=== PATIENT | male | born 1950 | race Caucasian/White ===

== ENCOUNTER 2016-08-07 15:21 | Inpatient (IN) | payer MEDICARE, MEDICAID ==
[2016-08-07 16:14] LABS: % BASOPHILS 0.4 % (0.0-2.0); % EOSINOPHILS 0.4 % (0.0-5.0); % LYMPHOCYTES 10.4 % (20.0-50.0); % MONOCYTES 4.9 % (2.0-10.0); % NEUTROPHILS 83.9 % (40.0-80.0); MEAN CELL VOLUME 83.9 fl (80-99); MEAN CORPUSCULAR HEMOGLOBIN 28.8 pg (27.0-31.0); MEAN CORPUSCULAR HGB CONC 34.3 pg (28.0-36.0); NEUTROPHILE ABSOLUTE 8.8 Th/cmm (1.8-8.0); PLATELET COUNT 262 Th/cmm (150-400); RED BLOOD COUNT 3.23 Mil/cmm (3.80-5.80); RED CELL DISTRIBUTION WIDTH 14.9 % (11.5-20.0); WHITE BLOOD COUNT 10.4 Th/cmm (4.8-10.8)
[2016-08-07 16:21] LABS: HEMATOCRIT 27.1 % (39.0-49.0); HEMOGLOBIN 9.3 gm/dL (12.6-17.4)
[2016-08-07 16:36] LABS: INR 1.12 (0.5-1.4); PROTHROMBIN TIME (TEST) 11.7 SECONDS (9.5-11.5)
--- NOTE | 2016-08-07 16:37 | ED Physician Chart ---
Chief Complaint/HPI - Patient Information Date Seen:: 08/07/16 Time Seen:: 16:15 Chief Complaint:: CONFUSED History of Present Illness:: THIS IS A 65 YO MALE WHO IS HALLUCINATING AND SCRATCHING HIS LEG SO MUCH THAT THEY WERE BLEEDING THIS AM. HE IS CONFUSED AND HAS A HISTORY OF PSYCHOSIS. HE IS TALKING NON STOP. HE WAS FOUND STANDING IN A POOL OF BLOOD WHEN EMS PICKED HIM UP. Allergies:: Allergies Allergy/AdvReac Type Severity Reaction Status Date / Time No Known Allergies Allergy Verified 08/07/16 16:07 Vitals:: Vital Signs - 8 hr 08/07/16 16:07 Temp 99.1 F HR 73 RR 16 BP 135/78 O2 Sat % 97 Historian:: Patient, Medical Records Review:: Nurse's Note Reviewed Review of Systems - Review of Systems General/Constitutional: No fever, No chills, No weight loss, No weakness, No diaphoresis, No edema, No loss of appetite, Other (THIS PATIENT IS UNABLE TO GIVE A REVIEW OF SYSTEMS ) Skin: No skin lesions, No rash, No bruising Head: No headache, No light-headedness Eyes: No loss of vision, No pain, No diplopia ENT: No earache, No nasal drainage, No sore throat, No tinnitus Neck: No neck pain, No swelling, No thyromegaly, No stiffness, No mass noted Cardio Vascular: No chest pain, No palpitations, No PND, No orthopnea, No edema Pulmonary: No SOB, No cough, No sputum, No wheezing GI: No nausea, No vomiting, No diarrhea, No pain, No melena, No hematochezia, No constipation, No hematemesis G/U: No dysuria, No frequency, No hematuria Musculoskeletal: No bone or joint pain, No back pain, No muscle pain Endocrine: No polyuria, No polydipsia Psychiatric: No prior psych history, No depression, No anxiety, No suicidal ideation Hematopoietic: No bruising, No lymphadenopathy Allergic/Immuno: No urticaria, No angioedema Neurological: No syncope, No focal symptoms, No weakness, No paresthesia, No headache, No seizure, No dizziness, No confusion, No vertigo Past Medical History - Past Medical History Obtainable: Yes Past Medical History: Other (ANEMIA) Family Medical History - Family Member Mother History Unknown: Yes Ethnicity: Non- Living Status: Hx Family Cancer: No Hx Family Coronary Artery Disease: No Hx Family Congestive Heart Failure: No Hx Family Hypertension: Yes Hx Family Stroke: No Hx Family Diabetes: No Hx Family Seizures: No Hx Family Dementia: No Hx Family AIDS: No Hx Family HIV: No Hx Family COPD: No Hx Family Hepatitis: No Hx Family Psychiatric Problems: No Hx Family Tuberculosis: No Physical Exam - Physical Examination General/Constitutional: Awake, Well-developed, well-nourished, Alert, No distress, GCS 15, Non-toxic appearing, Ambulatory Head: Atraumatic Eyes: Lids, conjuctiva normal, PERRL, EOMI Skin: Nl inspection, No rash, No skin lesions, No ecchymosis, Well hydrated, No lymphadenopathy ENMT: External ears, nose nl, Nasal exam nl, Lips, teeth, gums nl Neck: Nontender, Full ROM w/o pain, No JVD, No nuchal rigidity, No bruit, No mass, No stridor Respiratory: Nl effort/Exclusion, Clear to Auscultation, No Wheeze/Rhonchi/Rales Cardio Vascular: RRR, No murmur, gallop, rubs, NL S1 S2 GI: No tenderness/rebounding/guarding, No organomegaly, No hernia, Normal BS's, Nondistended, No mass/bruits, No McBurney tenderness : No CVA tenderness Extremities: Full ROM, normal strength in all extremities, No edema, Normal digits & nails Other Extremities comments:: THERE ARE LARGE ABRASION TO THE LOWER LEG FROM THE PATIENT SCRATCHING THEM. Neuro/Psych: Alert/oriented, DTR's symmetric, Normal sensory exam, Normal motor strength, Normal gait, No focal deficits Other Neuro/Psych comments:: THIS PATIENT HAS POOR THOUGHT PROCESS AND IS UP AND DOWN ON HIS MOOD. Misc: normal gait, Normal back, No paraspinal tenderness Labs/Radiology/EKG Results - Lab Results Results: Laboratory Tests 08/07/16 15:48 WBC 10.4 RBC 3.23 L Hgb 9.3 L D Hct 27.1 L D MCV 83.9 MCH 28.8 MCHC Differential 34.3 RDW 14.9 Plt Count 262 MPV 8.0 Neutrophils % 83.9 H Lymphocytes % 10.4 L Monocytes % 4.9 Eosinophils % 0.4 Basophils % 0.4 - Radiology Results Results: CHEST X-RAY = NAD - EKG Interpretations EKG Time:: 15:38 Rate & Rhythm: 67 Gordon: RIGHT Intervals: NO ECTOPY ED Septic Shock - . Is Septic Shock (SBP<90, OR Lactate>4 mmol\L) present?: No - <6hrs of presentation: Vital Signs: Vital Signs - 8 hr 08/07/16 16:07 Temp 99.1 F HR 73 RR 16 BP 135/78 O2 Sat % 97 Reassessment (Disposition) - Diagnosis Diagnosis:: PSYCHOSIS ANEMIA - Patient Disposition Discharge/Transfer:: Acute Care w/in this hosp Admitting Medical Physician:: Nathan Hinkle Admitting Psych Physician:: Luis James Condition at Disposition:: Unchanged ED Discharge Plan - Patient Disposition Admit/Discharge/Transfer: Acute Care w/in this hosp Condition at Disposition: Unchanged
[2016-08-07 16:44] LABS: ALB/GLOB RATIO 1.3 (1.0-1.8); ALKALINE PHOSPHATASE 45 U/L (34-104); ANION GAP 8.7 (7.0-16.0); BILIRUBIN,TOTAL 0.3 mg/dL (0.3-1.0); BUN - UREA NITROGEN 16 mg/dL (7-25); BUN/CREATININE RATIO 17.8; CALCIUM SERUM 8.8 mg/dL (8.6-10.3); CARBON DIOXIDE 24.3 mEq/L (21.0-31.0); CHLORIDE 100 mEq/L (98-107); CREATININE - SERUM 0.9 mg/dL (0.7-1.3); GLUCOSE 107 mg/dL (70-105); SGOT 15 U/L (13-39); SGPT/ALT 7 U/L (7-52); SODIUM SERUM 129 mEq/L (136-145)
[2016-08-07 16:45] LABS: CHOLESTEROL 100 mg/dL (<200); TRIGLYCERIDES 44 mg/dL (<150)
[2016-08-07 17:14] LABS: URINE BILIRUBIN NEGATIVE (NEGATIVE); URINE COLOR YELLOW; URINE GLUCOSE (UA) NEGATIVE (NEGATIVE)
[2016-08-07 17:15] LABS: URINE BACTERIA OCCASIONAL /hpf (NONE SEEN); URINE BLOOD NEGATIVE (NEGATIVE); URINE EPITHELIAL CELLS RARE /lpf (FEW); URINE HYALINE CAST 0-2 /lpf (0-2); URINE KETONE NEGATIVE (NEGATIVE); URINE PROTEIN NEGATIVE (NEGATIVE); URINE RBC NONE SEEN /hpf (0-5); URINE UROBILINOGEN 0.2 E.U./dL (0.2 - 1.0)
[2016-08-07] MEDS ORDERED: Maalox 30 mL Cup PO PRN (19:41)
[2016-08-07] MEDS ORDERED: Magnesium Hydroxide (MOM) 30 mL UDC PO PRN (19:41)
[2016-08-07 19:54] VITALS: BP 99/48
--- NOTE | 2016-08-07 20:42 | Admit Criteria Form ---
Admit Criteria Forms - Admit Criteria Diagnosis: PSYCHIATRIC DISORDERS Clinical Indications for Inpatient Care (Place 'X' for any and all applicable criteria): Ongoing inpatient care may be needed for ANY ONE of the following(1)(2)(3)(4)(6) (7)(8): [ ]I. Danger to self or others not manageable at lower level of care. [ ]II. Grave disability (eg, inability to perform self care necessary at lower level of care) [ ]III. Agitation or inappropriate behavior interfering with care for primary condition (eg, attempting to discontinue lines or drains prematurely, unable to cooperate with respiratory care) [X]IV. Severe disability or disorder indicated by ALL of the following: [X]a) Severe behavioral health disorder-related symptoms or condition indicated by ANY ONE of the following: [ ]i) Severe problem with cognition, memory, judgment, or impulse control [X]ii) Severe clinical manifestations (eg, hallucinations, delusions, other acute psychotic symptoms, gonzalo, extreme agitation or anxiety) [X]b) Patient management at lower level of care is not feasible until acute intervention or modification is initiated. Extended stay beyond goal length of stay for the primary condition may be indicated when ANY ONE of the following is present: (1)(2)(3)(4): [ ]a) Patient is a danger to self or others and not manageable at lower level of care. [ ]b) Behavior crisis management, including physical or chemical restraints, is required and is not available at a lower level of care. [ ]c) Behavioral symptoms (e.g., agitation, somnolence, inappropriate behavior) are present, and are not manageable at a lower level of care. [ ]d) Patient cannot understand follow-up treatment and crisis plan. [ ]e) Provider and supports are not sufficiently available at lower level of care. [ ]f) Patient cannot participate (e.g., verify absence of plan for harm) and is in needed of monitoring. The original [facility] content created by [facility] has been revised. The portions of the content which have been revised are identified through the use of italic text or in bold, and [facility] has neither reviewed nor approved the modified material. All other unmodified content is copyright [facility]. Please see references footnoted in the original [facility] edition 2016 Admit Criteria Met?: Yes
[2016-08-08] MEDS: Atorvastatin Calcium 10 MG TAB PO SCH (09:14)
[2016-08-08] MEDS: Aspirin 81mg Chewable Tab PO SCH (09:15)
[2016-08-08] MEDS: Multivitamin Tab PO SCH (09:15)
--- NOTE | 2016-08-08 09:36 | Diagnostic Imaging Report ---
CHEST X-RAY: AP view INDICATION: Shortness of breath COMPARISON: Chest x-ray 06/30/2015 FINDINGS: Chronic lung changes are seen with no focal consolidation or pleural effusions. Postsurgical changes of the right hilar region are noted. Heart size is normal. Tortuous aorta is noted. Degenerative changes of the spine are noted. IMPRESSION: Chronic lung changes with no focal consolidation identified. Postsurgical changes of the right hilar region, correlate clinically. Tortuous aorta.
[2016-08-09] MEDS: Atorvastatin Calcium 10 MG TAB PO SCH (09:33)
[2016-08-09] MEDS: Aspirin 81mg Chewable Tab PO SCH (09:33)
[2016-08-09] MEDS: Multivitamin Tab PO SCH (09:34)
--- NOTE | 2016-08-09 19:20 | Psychosocial Evaluation ---
DATE OF SERVICE: 08/08/2016 IDENTIFYING DATA: The patient is a 65-year-old male, resident of [facility]. Information obtained by directly interviewing the patient and reviewing the record since talking to the staff members. JUSTIFICATION OF HOSPITALIZATION: The patient is admitted here on a voluntary basis in view of his acute agitation. CHIEF COMPLAINT: "I do not know." HISTORY OF PRESENT ILLNESS: This is one of multiple psychiatric hospitalizations for this patient who was last hospitalized in June 2015. The patient is reporting that he has been getting upset at the facility. The patient is reported to have been on Seroquel, Ativan, and Celexa and even then, these medications are not helping him. The patient on the day of the hospitalization has been getting out of control, the patient is reported to be screaming and yelling and hence it is decided to send the patient's care at the lower level has not been successful and hence the patient has been referred over to the geropsychiatric unit for further care. The patient has been reported to have been self-abusive, is scratching the legs and bleeding nonstop for the past 6 hours prior to the hospitalization. The patient is very unstable, thinks that something is on him and then he is not able to stop acting out. At the time of the hospitalization, the patient has been on Seroquel, which he has been taking 50 mg at bedtime. The patient is also on the citalopram, we has been ____ 40 mg. The patient has been getting the medication for his blood pressure and the hypercholesterolemia and the patient is also on hydrochlorothiazide. The patient is being followed up by Dr. Parson on an outpatient basis. PAST PSYCHIATRIC HISTORY: Please refer to the above. MEDICAL HISTORY: Physical examination is requested to be done by Dr. Hinkle. The patient is reported to have been treated for hypertension, mycosis. ALLERGIES: No allergies to any medications are reported at the time of the evaluation. PHYSICAL OR SEXUAL ABUSE HISTORY: None. LEGAL PROBLEMS: None. SUBSTANCE ABUSE HISTORY: None. SOCIAL HISTORY: The patient is a resident of the [facility]. MENTAL EXAMINATION: The patient is a 65-year-old, looking his stated age, superficially____ cooperative. Eye contact is poor. Mood is noted to be irritable. Affect is constricted. Insight and judgment at this time are noted to be very much impaired. Impulse control is noted to be poor. The patient is getting easily agitated. The patient's coping skills are noted to be very poor. The patient has been noted to be very paranoid and has been having acute mood swings. The patient is going to be restarted on the medications and is going to be closely monitored. DIAGNOSTIC IMPRESSION: AXIS I: Schizoaffective disorder. AXIS II: None. AXIS III: As per Dr. Hinkle. IMMEDIATE TREATMENT PLAN: The patient is going to be observed on inpatient unit, provided with supportive psychotherapy. The patient is going to be closely monitored. Once stabilized, the patient is going to be discharged [facility] to be followed up on an outpatient basis. JOB# [id number]
--- NOTE | 2016-08-10 05:57 | Progress Notes ---
DATE: 08/09/2016 TIME PATIENT SEEN: 1:15 p.m. SUBJECTIVE: Staff was spoken to. The patient is interviewed. Mood is noted to be irritable. Affect is constricted. Insight and judgment are noted to be very much impaired. The patient is still getting easily irritable, angry and screaming and yelling at the staff. No side effects to the medications are noted. Sleep is noted to be poor. Appetite is noted to be fair. ASSESSMENT: The patient is very agitated and impulsive. PLAN: To continue the patient with the supportive therapy and follow up. JOB# [id number]
[2016-08-10] MEDS: Multivitamin Tab PO SCH (10:06)
[2016-08-10] MEDS: Aspirin 81mg Chewable Tab PO SCH (10:06)
[2016-08-10] MEDS: Atorvastatin Calcium 10 MG TAB PO SCH (10:07)
--- NOTE | 2016-08-10 16:46 | History & Physical ---
ADMIT DATE: 08/10/2016 CHIEF COMPLAINT: Abnormal behavior. HISTORY OF PRESENT ILLNESS: This is a male , 65 years of age, comes from the [facility] where he has self-mutilated himself saying that he has bugs in his skin, cut himself on the upper lower extremity and torso and caused a lot of bleeding, was immediately brought to the Emergency Room in the [facility], has been evaluated and admitted in the [facility] with Dr. James as his psychiatrist. PAST MEDICAL HISTORY: The patient has had the following conditions in the past. 1. He has hypertension, stable. 2. Generalized degenerative joint disease with osteoarthritis and osteoporosis, also stable. 3. Chronic pain syndrome. FAMILY HISTORY: He is devoid of inherited diseases. He has had usual childhood diseases and has had his immunizations at the time they were needed. ALLERGIES: No known allergies. SOCIAL HISTORY: History of smoking. I am not sure if he drinks alcohol. He is at liberty to live in and out of the facility. MEDICATIONS: I do not have any current medication list at the present time. REVIEW OF SYSTEMS: Confusion, disorientation, anger. No cough, no congestion, no chest pain, no abdominal discomfort. No bowel or urinary problems. PHYSICAL EXAMINATION: GENERAL: The patient appears alert, ambulant, but does not appear to be in touch with reality. VITAL SIGNS: Blood pressure is 130/70, pulse 70, respirations 18, temperature is 98, blood pressure is 150/90. HEAD: Skull symmetrical. No alopecia, no masses, no abnormal pulsations of bruits. SKIN: Dry with no dermatosis. No particular ecchymosis. No jaundice discoloration. HEENT: The eyes are sluggish, but equal and reactive to light reflexes, nonicteric sclerae. No corneal opacities. No conjunctival injection, atherosclerotic change of the fundi. Patent ear canals and drums are intact. No septal deviation. No turbinate engorgement. No circumoral cyanosis and no oropharyngeal infection. NECK: Supple. Thyroid is not enlarged. Trachea is midline. Bilateral palpable carotids, no bruits. No supraclavicular venous engorgement or lymphadenopathy. CHEST: Symmetrical. No gynecomastia. LUNGS: Clear with no rales or rhonchi. CARDIOVASCULAR: Heart rate and rhythm with no arrhythmias. ABDOMEN: Benign, physiologic. No organomegaly. No rebound, guarding or tenderness. No ascites or shifting dullness, peristalsis audible on auscultation. The patient is somewhat combative. Refuses external genitalia, prostate or rectal exam. EXTREMITIES: Shows weak, but palpable pulses. No pedal edema. Negative Homans sign. Numerous excoriations of the upper and lower extremities and abdomen with lacerations to the skin which has caused a lot of bleeding. The patient has been admitted in [facility] with Dr. Barroso in consult. JOB# [id number]
--- NOTE | 2016-08-11 04:01 | Progress Notes ---
DATE: 08/10/2016 PSYCHIATRIC PROGRESS NOTE TIME PATIENT SEEN: 10:30 a.m. SUBJECTIVE: Staff was spoken to. The patient is interviewed. Mood is irritable. Affect is constricted. Insight and judgment at this time are noted to be still impaired. Impulse control is noted to be poor. The patient is screaming and yelling and the patient has been able to hit the staff members and patient has to be given a dose of the Ativan to calm him down. No side effects to the medications are noted. The patient has no insight into his illness. ASSESSMENT: The patient is still impulsive. PLAN: To continue the patient with Seroquel and follow the patient up. JOB# [id number]
[2016-08-11] MEDS: Atorvastatin Calcium 10 MG TAB PO SCH (08:54)
[2016-08-11] MEDS: Multivitamin Tab PO SCH (08:54)
[2016-08-11] MEDS: Aspirin 81mg Chewable Tab PO SCH (08:56)
--- NOTE | 2016-08-12 02:39 | Progress Notes ---
DATE: 08/11/2016 TIME PATIENT SEEN: 10:30 a.m. SUBJECTIVE: Staff was spoken to. The patient is interviewed. Mood is noted to be irritable. Affect is constricted. The patient is still depressed. Coping skills are noted to be poor. The patient is screaming and yelling. The patient has no insight into his illness. The patient needs to be redirected. ASSESSMENT: ____He is still depressed and psychotic. PLAN: To continue the patient with the Celexa and Seroquel and follow up. JOB# [id number]
[2016-08-12] MEDS: Atorvastatin Calcium 10 MG TAB PO SCH (09:46)
[2016-08-12] MEDS: Multivitamin Tab PO SCH (09:47)
[2016-08-12] MEDS: Aspirin 81mg Chewable Tab PO SCH (09:47)
--- NOTE | 2016-08-12 23:48 | Progress Notes ---
DATE: 08/12/2016 PSYCHIATRIC PROGRESS NOTE TIME PATIENT SEEN: 10:30 a.m. SUBJECTIVE: Staff was spoken to. The patient is interviewed. Mood is noted to be irritable. Affect is constricted. Insight and judgment at this time are noted to be very much impaired. Impulse control seems to be limited. The patient has a tendency to scream and yell. The patient is currently on citalopram 40 mg along with the Seroquel 50 mg at bedtime and has been able to tolerate the medication. No major side effects to the medications are noted. PLAN: To continue the patient with the current medications. I encouraged the patient to verbalize the concerns rather than to act out. JOB# [id number]
[2016-08-13] MEDS: Aspirin 81mg Chewable Tab PO SCH (08:32)
[2016-08-13] MEDS: Multivitamin Tab PO SCH (08:32)
[2016-08-13] MEDS: Atorvastatin Calcium 10 MG TAB PO SCH (08:33)
--- NOTE | 2016-08-14 02:19 | Progress Notes ---
DATE: 08/13/2016 TIME PATIENT SEEN: 08:30 a.m. SUBJECTIVE: Staff was spoken to. The patient is interviewed. Mood is noted to be irritable. Affect is constricted. Insight and judgment are noted to be still impaired. Coping skills are noted to be poor. The patient is isolative and withdrawn. The patient is currently on Celexa and Seroquel and is able to tolerate the medication. No side effects to the medications are noted. The patient has been still testing the limits, but could be redirectable at this time. ASSESSMENT: The patient is still impulsive and behavior is a danger to others at this time rather than to himself. PLAN: To continue the patient with the current medications and followup. JOB# [id number]
[2016-08-14] MEDS: Atorvastatin Calcium 10 MG TAB PO SCH (08:32)
[2016-08-14] MEDS: Aspirin 81mg Chewable Tab PO SCH (08:33)
[2016-08-14] MEDS: Multivitamin Tab PO SCH (08:35)
--- NOTE | 2016-08-15 06:49 | Progress Notes ---
DATE: 08/14/2016 PSYCHIATRIC PROGRESS NOTE TIME PATIENT SEEN: 10:30 a.m. SUBJECTIVE: Staff was spoken to. The patient is interviewed. Mood is noted to be irritable. Affect is constricted. The patient's coping skills are noted to be very poor. The patient is isolative and withdrawn. The patient is currently on Celexa and has been able to tolerate the medication. The patient is also on Seroquel for his impulsivity. The patient's family does not want him back at [facility], they want him back at [facility] and the patient at this time is not ready to be discharged. PLAN: To continue the patient with the supportive therapy. I encouraged the patient to verbalize the concerns rather than to act out. [facility]# [id number]
[2016-08-15] MEDS: Atorvastatin Calcium 10 MG TAB PO SCH (08:25)
[2016-08-15] MEDS: Multivitamin Tab PO SCH (08:26)
[2016-08-15] MEDS: Aspirin 81mg Chewable Tab PO SCH (08:27)
--- NOTE | 2016-08-16 04:52 | Progress Notes ---
DATE: 08/15/2016 TIME PATIENT SEEN: 5:15 p.m. SUBJECTIVE: Staff was spoken to. The patient is interviewed. Mood is noted to be irritable. Affect is constricted. Coping skills are noted to be still poor. Sleep and appetite are also noted to be very poor. Patient is easily frustrated. No aggressive behavior is reported today. ASSESSMENT: The patient is still psychotic and depressed. PLAN: To continue the patient with the current medications and followup. [facility]# [id number] MTDD
[2016-08-16] MEDS: Atorvastatin Calcium 10 MG TAB PO SCH (08:36)
[2016-08-16] MEDS: Aspirin 81mg Chewable Tab PO SCH (08:40)
[2016-08-16] MEDS: Multivitamin Tab PO SCH (08:40)
--- NOTE | 2016-08-17 06:13 | Progress Notes ---
DATE: 08/16/2016 TIME PATIENT SEEN: 5:15 p.m. SUBJECTIVE: Staff was spoken to. The patient is interviewed. Mood is noted to be irritable. Affect is constricted. The patient has been still paranoid. The patient is currently on Celexa and Seroquel and is able to tolerate the medications. Coping skills are noted to be very poor. The patient tends to be isolative. ASSESSMENT: The patient is still impulsive. PLAN: To continue the patient with the supportive therapy. I encouraged the patient to verbalize the concerns rather than to act out. JOB# [id number]
[2016-08-17] MEDS: Atorvastatin Calcium 10 MG TAB PO SCH (08:24)
[2016-08-17] MEDS: Aspirin 81mg Chewable Tab PO SCH (08:26)
[2016-08-17] MEDS: Multivitamin Tab PO SCH (08:29)
--- NOTE | 2016-08-18 02:06 | Progress Notes ---
DATE: 08/17/2016 PSYCHIATRIC PROGRESS NOTE TIME PATIENT SEEN: 10:15 a.m. SUBJECTIVE: Staff was spoken to. The patient is interviewed. Mood is noted to be irritable. Affect is constricted. The patient is reported to have been masturbating when the staff are trying to redirect him. The patient is reported to be laughing and not making any sense. The patient's impulsivity is a major concern. PLAN: To continue the patient with supportive therapy. I encouraged the patient to verbalize the concerns rather than to act out. The patient is going to be continued with the current antidepressants and antipsychotic medications. JOB# [id number]
[2016-08-18] MEDS: Atorvastatin Calcium 10 MG TAB PO SCH (08:13)
[2016-08-18] MEDS: Aspirin 81mg Chewable Tab PO SCH (08:14)
[2016-08-18] MEDS: Multivitamin Tab PO SCH (08:14)
--- NOTE | 2016-08-19 02:43 | Progress Notes ---
DATE: 08/18/2016 TIME PATIENT SEEN: 10:00 a.m. SUBJECTIVE: Staff was spoken to. The patient is interviewed. Mood is noted to be irritable. Affect is constricted. Insight and judgment, at this time, are noted to be still impaired. Impulse control seems to be limited. The patient's sexual preoccupation and self-abusive behavior are a concern. The patient is reported to have been accepted at [facility]. Plan to closely monitor the patient at this time before we discharge him. The patient is currently on citalopram 40 mg on a daily basis along with Seroquel 50 mg at bedtime and has been able to tolerate the medications. No side effects to the medications are noted at this time. Plan to closely monitor the patient. I encouraged the patient to verbalize the concerns and in view of the impulsivity, it is decided to increase the Seroquel to 100 mg at bedtime. I encouraged the patient to participate in the groups and the patient is going to be redirected from the inappropriate behavior. JOB# [id number] MTDJono
[2016-08-19] MEDS: Aspirin 81mg Chewable Tab PO SCH (08:43)
[2016-08-19] MEDS: Multivitamin Tab PO SCH (08:46)
[2016-08-19] MEDS: Atorvastatin Calcium 10 MG TAB PO SCH (08:47)
--- NOTE | 2016-08-20 03:50 | Progress Notes ---
DATE: 08/19/2016 PSYCHIATRIC PROGRESS NOTE TIME PATIENT SEEN: 10:00 a.m. SUBJECTIVE: Staff was spoken to. The patient is interviewed. Mood is noted to be irritable. Affect is constricted. The patient's coping skills are noted to be improving. The patient has been starting to participate in the groups. No side effects to the medications are noted. Sleep and appetite are noted to be improving. The patient is able to tolerate the medications. No sexualized behavior is reported today. ASSESSMENT: The patient is stabilizing. PLAN: To continue the patient with the supportive therapy and possibly discharge the patient in a day or so. JOB# [id number]
[2016-08-20] MEDS: Atorvastatin Calcium 10 MG TAB PO SCH (08:53)
[2016-08-20] MEDS: Aspirin 81mg Chewable Tab PO SCH (08:54)
[2016-08-20] MEDS: Multivitamin Tab PO SCH (08:55)
--- NOTE | 2016-08-20 21:37 | Progress Notes ---
DATE: 08/20/2016 TIME PATIENT SEEN: 09:00 a.m. SUBJECTIVE: Staff was spoken to. The patient is interviewed. Mood is noted to be less irritable. Affect is appropriate. The patient's coping skills are noted to be improving. No major behavioral problems are noted today. The patient is not sexually preoccupied and has been able to verbalize the concerns rather than to act out. ASSESSMENT: The patient is stabilizing. PLAN: To continue the patient with the supportive therapy. I encouraged the patient to verbalize the concerns rather than to act out. JOB# [id number]
[2016-08-21] MEDS: Multivitamin Tab PO SCH (09:05)
[2016-08-21] MEDS: Aspirin 81mg Chewable Tab PO SCH (09:05)
[2016-08-21] MEDS: Atorvastatin Calcium 10 MG TAB PO SCH (09:05)
[2016-08-22] MEDS: Multivitamin Tab PO SCH (09:26)
[2016-08-22] MEDS: Atorvastatin Calcium 10 MG TAB PO SCH (09:27)
[2016-08-22] MEDS: Aspirin 81mg Chewable Tab PO SCH (09:27)
--- NOTE | 2016-08-22 19:39 | Progress Notes ---
DATE: 08/21/2016 PSYCHIATRIC PROGRESS NOTE: TIME PATIENT SEEN: 5:00 p.m. SUBJECTIVE: Staff was spoken to. The patient is interviewed. Mood is noted to be anxious. The patient is reporting that he has been trying to follow the directions and has been doing fairly well and wants to go back to the placement. Insight and judgment are noted to be improving at this time. Impulse control seems to be fair. His sleep and appetite are also noted to be improving. ASSESSMENT: The patient is stabilizing. PLAN: To work with the caser and arranging the transfer back to the facility. JOB# [id number]
[2016-08-23] MEDS: Atorvastatin Calcium 10 MG TAB PO SCH (08:29)
[2016-08-23] MEDS: Aspirin 81mg Chewable Tab PO SCH (08:31)
[2016-08-23] MEDS: Multivitamin Tab PO SCH (08:36)
--- NOTE | 2016-08-23 17:40 | Progress Notes ---
DATE: 08/22/2016 PSYCHIATRIC PROGRESS NOTE TIME PATIENT SEEN: 5:00 p.m. SUBJECTIVE: Staff was spoken to. The patient is interviewed. Mood is noted to be anxious. Insight and judgment noted to be improving. Impulse control seems to be improving. No side effects to the medications are noted. The patient has been able to verbalize the concerns rather than to act out. ASSESSMENT: The patient is stabilizing. Psychosis is resolving. Impulse control is improving. PLAN: To continue the patient with supportive therapy and wait for placement. JOB# [id number]
--- NOTE | 2016-08-24 18:47 | Progress Notes ---
DATE: 08/23/2016 PSYCHIATRIC PROGRESS NOTE TIME PATIENT SEEN: 8:15 a.m. SUBJECTIVE: Staff was spoken to. The patient is interviewed. Mood is noted to be anxious. Affect is appropriate. Not suicidal or homicidal. Insight and judgment noted to be improving. Impulse control seems to be fair. No side effects to the medications are noted. The patient has been able to verbalize the concerns rather than to act out at this time. ASSESSMENT: The patient is stabilizing. PLAN: To discharge the patient today for followup on outpatient basis. JOB# [id number]
--- NOTE | 2016-09-05 19:19 | Discharge Summary ---
DATE OF DISCHARGE: 08/23/2016 PSYCHIATRIC DISCHARGE SUMMARY IDENTIFYING DATA: The patient is a 65-year-old male, resident of [place]. JUSTIFICATION OF HOSPITALIZATION: The patient is admitted on a voluntary basis in view of his acute agitation. CHIEF COMPLAINT: "I do not know." DIAGNOSES AT THE TIME OF ADMISSION: Schizoaffective disorder. SECONDARY DIAGNOSIS: None. MEDICAL DIAGNOSIS: As per . HISTORY OF PRESENT ILLNESS: Please refer the 08/08/2016 dictation done by me. Physical examination was done by ____ and is significant for hypertension, osteoporosis, and chronic pain syndrome. HOSPITAL COURSE AND RESPONSE TO TREATMENT: The patient has been observed on the inpatient unit, provided with supportive psychotherapy. The patient has been placed on amiodarone and hydrochlorothiazide for his blood pressure. He has been started on Celexa 40 mg daily and quetiapine has been given at 100 mg at bedtime. These medications was gradually increased and the patient has been closely monitored. I encouraged him to participate in the groups and verbalize the concerns. The patient started to do fairly well and hence the patient was finally discharged to [facility] to be followed up by Dr. Guillaume. MENTAL STATUS EXAMINATION AT THE TIME OF DISCHARGE: The patient's mood is noted to be anxious. Affect is appropriate, not suicidal or homicidal. Little bit of anxiety is there. The patient's confusion has been coming down. No major behavioral problems are noted at the time of the discharge. The patient is noted to be agitated. The patient could be redirected. Insight and judgment are noted to be improving. Impulse control seemed to be fair. AFTERCARE PLAN: The patient is discharged to [facility] to be followed up by Dr. Guillaume. DIAGNOSIS AT THE TIME OF THE DISCHARGE: AXIS I: Schizoaffective disorder. SECONDARY DIAGNOSIS: None. MEDICAL DIAGNOSIS: Hypertension. PROGNOSIS: At the time of discharge noted to be fair with the treatment. JOB# [id number]
== END 2016-08-23 15:35 | DRG 885 ==
LOC: ER 15:21 → GERO 17:31
PROVIDERS: ADMIT Psychiatry & Neurology Psychiatry; ATTEND Psychiatry & Neurology Psychiatry
DX: F25.9 Schizoaffective disorder, unspecified (principal); F29 Unspecified psychosis not due to a substance or known physiological condition; I10 Essential (primary) hypertension; D64.9 Anemia, unspecified; M19.90 Unspecified osteoarthritis, unspecified site; M81.0 Age-related osteoporosis without current pathological fracture; G89.4 Chronic pain syndrome; Z87.891 Personal history of nicotine dependence; Z82.49 Family history of ischemic heart disease and other diseases of the circulatory system
CPT/HCPCS: 36415-UA; 71010-TC; 80053-TC; 80061-TC; 81001-TC; 82948-90; 84443-TC; 84484-TC; 85025-TC; 85610-TC; 86592-TC; 90899; 93005; G0410; Z7610

== ENCOUNTER 2017-06-15 13:06 | Inpatient (IN) | payer MEDICARE, MEDICAID ==
--- NOTE | 2017-06-15 13:27 | ED Physician Chart ---
ED Chief Complaint/HPI - Patient Information Date Seen:: 06/15/17 Time Seen:: 13:24 Allergies:: Allergies Allergy/AdvReac Type Severity Reaction Status Date / Time No Known Allergies Allergy Verified 08/07/16 16:07 Vitals:: Vital Signs - 8 hr 06/15/17 13:12 Temp 98.5 F HR 62 RR 16 BP 138/84 O2 Sat % 98 Family Medical History - Family Member Mother History Unknown: Yes Ethnicity: Unknown Living Status: Unknown Hx Family Cancer: No Hx Family Coronary Artery Disease: No Hx Family Congestive Heart Failure: No Hx Family Hypertension: No Hx Family Stroke: No Hx Family Diabetes: No Hx Family Seizures: No Hx Family Dementia: No Hx Family AIDS: No Hx Family HIV: No Hx Family COPD: No Hx Family Hepatitis: No Hx Family Psychiatric Problems: No Hx Family Tuberculosis: No ED Septic Shock - <6hrs of presentation: Vital Signs: Vital Signs - 8 hr 06/15/17 13:12 Temp 98.5 F HR 62 RR 16 BP 138/84 O2 Sat % 98
[2017-06-15 13:50] LABS: % BASOPHILS 0.5 % (0.0-2.0); % EOSINOPHILS 3.5 % (0.0-5.0); % LYMPHOCYTES 19.1 % (20.0-50.0); % NEUTROPHILS 68.9 % (40.0-80.0); EOSINOPHILE ABSOLUTE 0.3 Th/cmm (0.1-0.4); HEMATOCRIT 38.6 % (41.0-60); HEMOGLOBIN 13.2 gm/dL (12-16); LYMPHOCYTE ABSOLUTE 1.4 Th/cmm (1.5-3.0); MEAN CELL VOLUME 88.8 fl (80-99); MEAN CORPUSCULAR HEMOGLOBIN 30.4 pg (27.0-31.0); MEAN CORPUSCULAR HGB CONC 34.3 pg (28.0-36.0); MEAN PLATELET VOLUME 8.2 fl; MONOCYTE ABSOLUTE 0.6 Th/cmm (0.3-1.0); NEUTROPHILE ABSOLUTE 5.1 Th/cmm (1.8-8.0); PLATELET COUNT 264 Th/cmm (150-400); RED BLOOD COUNT 4.35 Mil/cmm (3.80-5.80); RED CELL DISTRIBUTION WIDTH 14.2 % (11.5-20.0); WHITE BLOOD COUNT 7.4 Th/cmm (4.8-10.8)
--- NOTE | 2017-06-15 13:59 | Diagnostic Imaging Report ---
CHEST X-RAY: AP view INDICATION: Shortness of breath COMPARISON: Chest x-ray 03/13/[address] chest on 03/17/2017 FINDINGS: Postsurgical changes of the right mediastinal region are noted. There is no focal consolidation or pleural effusions The heart is normal in size. Mildly tortuous aorta is noted. Degenerative changes of the spine are noted. IMPRESSION: No focal airspace consolidation identified. Postsurgical changes as seen on prior exam.
[2017-06-15 14:06] LABS: ALB/GLOB RATIO 1.4 (1.0-1.8); ALBUMIN 4.3 gm/dL (4.2-5.5); ALKALINE PHOSPHATASE 66 U/L (34-104); ANION GAP 8.4 (7.0-16.0); BILIRUBIN,TOTAL 0.4 mg/dL (0.3-1.0); BUN - UREA NITROGEN 12 mg/dL (7-25); CALCIUM SERUM 9.3 mg/dL (8.6-10.3); CARBON DIOXIDE 26.6 mEq/L (21.0-31.0); CHLORIDE 97 mEq/L (98-107); CREATININE - SERUM 0.8 mg/dL (0.7-1.3); GFR AFRICAN-AMERICAN > 60.0 ml/min (>90); GFR NON AFRICAN-AMERICAN > 60.0 ml/min; GLUCOSE 96 mg/dL (70-105); SGOT 16 U/L (13-39); SGPT/ALT 11 U/L (7-52); SODIUM SERUM 128 mEq/L (136-145); TOTAL PROTEIN,SERUM 7.3 gm/dL (6.0-8.3)
[2017-06-15] MEDS ORDERED: Sodium Chloride 0.9% 1,000 ML IV ONE (14:47)
[2017-06-15 18:31] LABS: URINE MICROSCOPIC INDICATED? YES; URINE SOURCE RANDOM
[2017-06-15 18:32] LABS: URINE BILIRUBIN NEGATIVE (NEGATIVE); URINE BLOOD NEGATIVE (NEGATIVE); URINE GLUCOSE (UA) NEGATIVE (NEGATIVE); URINE KETONE NEGATIVE (NEGATIVE); URINE LEUKOCYTE ESTERASE NEGATIVE (NEGATIVE); URINE NITRATE NEGATIVE (NEGATIVE); URINE PROTEIN NEGATIVE (NEGATIVE); URINE UROBILINOGEN 0.2 E.U./dL (0.2 - 1.0)
[2017-06-15 18:35] LABS: URINE CLARITY CLEAR (CLEAR); URINE COLOR YELLOW
[2017-06-15 18:36] LABS: URINE BACTERIA NONE SEEN /hpf (NONE SEEN); URINE EPITHELIAL CELLS NONE SEEN /lpf (FEW); URINE RBC NONE SEEN /hpf (0-5); URINE WBC NONE SEEN /hpf (0-5)
[2017-06-15 21:01] VITALS: BP 130/70
[2017-06-15] MEDS ORDERED: Maalox 30 mL Cup PO PRN (21:17)
[2017-06-15] MEDS ORDERED: Magnesium Hydroxide (MOM) 30 mL UDC PO PRN (21:17)
[2017-06-16] MEDS ORDERED: Aspirin 81mg Chewable Tab PO SCH (09:00)
[2017-06-16] MEDS: Multivitamin Tab PO SCH (09:14)
[2017-06-16] MEDS ORDERED: Hydrocodone/APAP 5mg/325mg Tab PO PRN (16:00)
--- NOTE | 2017-06-16 16:12 | Progress Notes ---
DATE: The patient was seen and evaluated. The patient's chart reviewed. The patient Dictation ends here JOB# [id number]
--- NOTE | 2017-06-16 16:53 | Consultation ---
DATE OF CONSULTATION: 06/16/2017 The patient was seen and evaluated. The patient's chart reviewed. This is an initial psychiatric evaluation, covering for Dr. James. IDENTIFYING DATA: A 66-year-old male with history of depression, was brought in here for increased agitation and irritability. HISTORY OF PRESENT ILLNESS: The patient a 66-year-old male living in [facility] getting little bit more irritability, severe depression, anxiety. Today on [id number] evaluation, the patient reports that he has been feeling overwhelmed, distraught, anxious, suicidal. No manic and hypomanic symptoms. No PTSD, OCD symptoms. PAST PSYCHIATRIC HISTORY: History of depression. PAST MEDICAL HISTORY: High blood pressure, A-fib. ALLERGIES TO MEDICATIONS: NKDA. HOME MEDICATIONS: Include diclofenac, clonidine, Xarelto, amiodarone, hydrochlorothiazide, quetiapine 50 mg at nighttime, citalopram at 40 mg, metoprolol 25 mg, aspirin, atorvastatin and calcium. FAMILY HISTORY: None. PSYCHIATRIC HISTORY: Depression. LEGAL HISTORY: None. History of alcohol or drug use; denies. PREVIOUS INPATIENT AND OUTPATIENT VISITS: Multiple. MENTAL STATUS EXAMINATION: He is calm, cooperative, depressed, melancholic, distraught, overwhelmed, SI. Poor insight, judgment and impulse control. Immediate memory: Can give date and week. Recent memory: He knew the date of admission. Attention span; he was able to name . Concentration; he was able to spell the world backwards. ACUTE COGNITIVE IMPAIRMENT: Severe. WEAKNESSES: Poor coping skills. STRENGTH: Good ability for insight in the near future. PRIMARY DIAGNOSES: Major depressive, severe, recurrent, without psychosis. SECONDARY DIAGNOSIS: None. MEDICAL DIAGNOSIS: As noted above. ASSESSMENT AND PLAN: The patient is a 66-year-old severely depressed, melancholic. Will continue with citalopram at 40 mg and Seroquel as we obtain more collateral baseline information and may consider increasing the Seroquel to augment the current dosage of the antidepressants. Primary estimated stay between 5-10 days. DISCHARGE CRITERIA: The patient is to demonstrate euthymic mood, not suicidal or homicidal. Good psychiatric followup. Good peer interaction. [facility]# [id number]
[2017-06-16] MEDS: Atorvastatin Calcium 10 MG TAB PO SCH (21:35)
--- NOTE | 2017-06-16 21:46 | Consultation ---
DATE OF CONSULTATION: 06/16/2017 REQUESTING PHYSICIAN: Dr. Luis James. REASON: Medical management. HISTORY OF PRESENT ILLNESS: A 66-year-old male who resides at assisted living facility, has multiple medical problems, recently admitted in month of February of last year for bilateral lower extremity cellulitis, presented to [facility] for psychiatric evaluation. After being evaluated, the patient has now been admitted to the hospital for further treatment for psychiatric illness. PAST MEDICAL HISTORY: Remarkable for: 1. Hypertension. 2. Coronary artery disease. 3. DJD. 4. Peripheral vascular disease. 5. Chronic venous stasis changes. 6. History of bone cancer, status post resection. 7. Obesity. 8. Fall risk. MEDICATIONS LIST: Has been reviewed and reconciled appropriately. ALLERGIES: None. SOCIAL HISTORY: He lives in assisted living facility, has a history of smoking cigarette, but no alcohol or drug use. FAMILY HISTORY: Remarkable for hypertension. REVIEW OF SYSTEMS: The patient complaining of the itchiness on the both lower extremities and some redness and pain on both lower extremity. Otherwise, denies any headache, blurred vision, double vision, dysphagia, odynophagia, runny nose, stuffy nose, fever, chills, cough, chest pain, shortness of breath, palpitation, dizziness, nausea, vomiting, diarrhea, dysuria, hematuria, hematochezia, or melena. PHYSICAL EXAMINATION: GENERAL: The patient is alert, awake, and oriented, lying in the bed without any acute distress. VITAL SIGNS: Temperature 98, pulse is 64, respiratory rate 18, and blood pressure 110/70. HEENT: Normocephalic and atraumatic. Extraocular muscles are intact. Tongue was pink and coated. Poor dentition noted. No facial asymmetry. NECK: Supple. No JVD. No hepatojugular reflux. No lymphadenopathy, thyromegaly, or carotid bruit. HEART: Both heart sounds are regular. No S3. Grade 3/6 systolic murmur noted. CHEST: Lung equal in expansion. No wheezing, no crackles. ABDOMEN: Soft. No guarding, no rigidity. Liver and spleen palpable. No palpable mass. EXTREMITIES: Remarkable for bilateral chronic venous stasis changes noted. Peripheral pulses are +2. No calf tenderness noted. NEUROLOGIC: Alert and awake. Following commands. No gross neuro deficit noted. AVAILABLE DIAGNOSTIC DATA: Has been reviewed. CLINICAL IMPRESSION: 1. Psychotic disorder exacerbation. 2. Chronic venous stasis on both lower extremities. 3. Hypertension. 4. Coronary artery disease. 5. Degenerative joint disease. 6. Psychotic disorder. 7. History of cardiac arrhythmia. PLAN: 1. Psychiatric evaluation and management deferred to psychiatrist. 2. Discontinue the patient's aspirin and diclofenac and continue Xarelto for now and for pain management, we will give Tylenol No. 3. Continue other medication as prescribed. 3. Fall precautions. 4. General nursing care. 5. Symptoms management. 6. Medication management. 7. Follow lab. 8. Follow consult recommendation. 9. Care plan reviewed and discussed with staff. JOB# [id number]
[2017-06-17] MEDS: Multivitamin Tab PO SCH (09:22)
--- NOTE | 2017-06-17 18:35 | Progress Notes ---
DATE: SUBJECTIVE: The patient was seen and evaluated. The patient's chart reviewed. Nursing staff reported the patient mostly isolative, withdrawn. Today on [id number] evaluation, the patient reports that his mood still continues to be little depressed. MENTAL STATUS EXAMINATION: Depressed, anxious, distraught. ASSESSMENT AND PLAN: The patient is a 66-year-old male with severe depression, unable to formulate safe plan due to the patient's severe melancholic state. We will continue with the recent mentation of medications which include Lexapro 40 mg a day and Seroquel to continue targeting the patient's depressive state. [facility]# [id number]
[2017-06-17] MEDS: Atorvastatin Calcium 10 MG TAB PO SCH (21:22)
[2017-06-18] MEDS: Multivitamin Tab PO SCH (08:58)
--- NOTE | 2017-06-18 11:40 | General Progress Note ---
Subjective - Review of Systems Subjective: Patient is seen and examined. C/O itching on arms. No chest pain ,sob,nausea,vomiting,headache. Objective - Results Result Diagrams: 06/15/17 13:45 06/15/17 13:45 Recent Labs: Laboratory Last Values WBC 7.4 Th/cmm (4.8-10.8) 06/15/17 13:45 RBC 4.35 Mil/cmm (3.80-5.80) 06/15/17 13:45 Hgb 13.2 gm/dL (12-16) 06/15/17 13:45 Hct 38.6 % (41.0-60) L 06/15/17 13:45 MCV 88.8 fl (80-99) 06/15/17 13:45 MCH 30.4 pg (27.0-31.0) 06/15/17 13:45 MCHC Differential 34.3 pg (28.0-36.0) 06/15/17 13:45 RDW 14.2 % (11.5-20.0) 06/15/17 13:45 Plt Count 264 Th/cmm (150-400) 06/15/17 13:45 MPV 8.2 fl 06/15/17 13:45 Neutrophils % 68.9 % (40.0-80.0) 06/15/17 13:45 Lymphocytes % 19.1 % (20.0-50.0) L 06/15/17 13:45 Monocytes % 8.0 % (2.0-10.0) 06/15/17 13:45 Eosinophils % 3.5 % (0.0-5.0) 06/15/17 13:45 Basophils % 0.5 % (0.0-2.0) 06/15/17 13:45 Sodium 128 mEq/L (136-145) L 06/15/17 13:45 Potassium 4.0 mEq/L (3.5-5.1) 06/15/17 13:45 Chloride 97 mEq/L (98-107) L 06/15/17 13:45 Carbon Dioxide 26.6 mEq/L (21.0-31.0) 06/15/17 13:45 Anion Gap 8.4 (7.0-16.0) 06/15/17 13:45 BUN 12 mg/dL (7-25) 06/15/17 13:45 Creatinine 0.8 mg/dL (0.7-1.3) 06/15/17 13:45 Est GFR ( Amer) > 60.0 ml/min (>90) 06/15/17 13:45 Est GFR (Non-Af Amer) > 60.0 ml/min 06/15/17 13:45 BUN/Creatinine Ratio 15.0 06/15/17 13:45 Glucose 96 mg/dL (70-105) 06/15/17 13:45 Calcium 9.3 mg/dL (8.6-10.3) 06/15/17 13:45 Total Bilirubin 0.4 mg/dL (0.3-1.0) 06/15/17 13:45 AST 16 U/L (13-39) 06/15/17 13:45 ALT 11 U/L (7-52) 06/15/17 13:45 Alkaline Phosphatase 66 U/L (34-104) 06/15/17 13:45 Total Protein 7.3 gm/dL (6.0-8.3) 06/15/17 13:45 Albumin 4.3 gm/dL (4.2-5.5) 06/15/17 13:45 Globulin 3.0 gm/dL 06/15/17 13:45 Albumin/Globulin Ratio 1.4 (1.0-1.8) 06/15/17 13:45 TSH 1.94 uIU/ml (0.34-5.60) 06/15/17 13:45 Urine Source RANDOM 06/15/17 14:00 Urine Color YELLOW 06/15/17 14:00 Urine Clarity CLEAR (CLEAR) 06/15/17 14:00 Urine pH 7.0 (4.6 - 8.0) 06/15/17 14:00 Ur Specific [place] <= 1.005 (1.005-1.030) 06/15/17 14:00 Urine Protein NEGATIVE mg/dL (NEGATIVE) 06/15/17 14:00 Urine Glucose (UA) NEGATIVE mg/dL (NEGATIVE) 06/15/17 14:00 Urine Ketones NEGATIVE mg/dL (NEGATIVE) 06/15/17 14:00 Urine Blood NEGATIVE (NEGATIVE) 06/15/17 14:00 Urine Nitrate NEGATIVE (NEGATIVE) 06/15/17 14:00 Urine Bilirubin NEGATIVE (NEGATIVE) 06/15/17 14:00 Urine Urobilinogen 0.2 E.U./dL (0.2 - 1.0) 06/15/17 14:00 Ur Leukocyte Esterase NEGATIVE (NEGATIVE) 06/15/17 14:00 Urine RBC NONE SEEN /hpf (0-5) 06/15/17 14:00 Urine WBC NONE SEEN /hpf (0-5) 06/15/17 14:00 Ur Epithelial Cells NONE SEEN /lpf (FEW) 06/15/17 14:00 Urine Bacteria NONE SEEN /hpf (NONE SEEN) 06/15/17 14:00 - Physical Exam Vitals and I&O: Vital Signs Temp 98.2 F 06/18/17 05:56 Pulse 60 06/18/17 10:05 Resp 19 06/18/17 05:56 BP 127/81 06/18/17 10:05 Pulse Ox 97 06/18/17 05:56 Intake & Output 06/17/17 06/18/17 06/18/17 18:59 06:59 18:59 Intake Total 1400 360 Balance 1400 360 Intake: Oral 1400 360 Other: # Voids 4 3 # Bowel Movements 2 0 Active Medications: Current Medications Acetaminophen (Tylenol) 650 mg PO Q4HR PRN PRN Reason: Mild Pain / Temp above 100 Stop: 08/14/17 21:16 Acetaminophen/Hydrocodone Bitart ([place] 5mg/325mg) 1 tab PO Q6H PRN PRN Reason: pain Stop: 08/15/17 15:59 Al Hydrox/Mg Hydrox/Simethicone (Maalox) 30 ml PO Q4HR PRN PRN Reason: GI DISTRESS Stop: 08/14/17 21:16 Amiodarone HCl (Cordarone) 200 mg PO DAILY [facility] Stop: 08/15/17 08:59 Last Admin: 06/18/17 09:04 Dose: 200 mg Atorvastatin Calcium (Lipitor) 40 mg PO HS [facility] PRN Reason: Protocol Stop: 08/15/17 20:59 Last Admin: 06/17/17 21:22 Dose: 40 mg Citalopram Hydrobromide (Celexa) 40 mg PO DAILY [facility] PRN Reason: Protocol Stop: 08/15/17 08:59 Last Admin: 06/18/17 08:58 Dose: 40 mg Docusate Sodium (Colace) 100 mg PO BID [facility] Stop: 08/15/17 08:59 Last Admin: 06/18/17 08:58 Dose: 100 mg Hydrochlorothiazide (Hctz) 25 mg PO DAILY [facility] Stop: 08/15/17 08:59 Last Admin: 06/18/17 09:05 Dose: 25 mg Hydroxyzine HCl (Atarax) 10 mg PO Q6H PRN; Protocol PRN Reason: itching Stop: 08/15/17 16:16 Last Admin: 06/16/17 21:43 Dose: 10 mg Lorazepam (Ativan) 0.5 mg PO Q4HR PRN; Protocol PRN Reason: Anxiety/agitation Stop: 07/15/17 21:16 Last Admin: 06/16/17 09:30 Dose: 0.5 mg Magnesium Hydroxide (Milk Of Magnesia) 30 ml PO HS PRN PRN Reason: Constipation Metoprolol Tartrate (Lopressor) 25 mg PO BID [facility] Stop: 08/15/17 08:59 Last Admin: 06/18/17 09:05 Dose: 25 mg Multivitamins/Vitamin C (Theragran) 1 tab PO DAILY [facility] Stop: 08/15/17 08:59 Last Admin: 06/18/17 08:58 Dose: 1 tab Mupirocin (Bactroban Oint) 1 appl TP BID [facility] Stop: 08/15/17 16:59 Last Admin: 06/18/17 09:01 Dose: 1 appl Quetiapine Fumarate (Seroquel) 50 mg PO HS [facility] PRN Reason: Protocol Stop: 08/15/17 20:59 Last Admin: 06/17/17 21:23 Dose: 50 mg Rivaroxaban (Xarelto) 20 mg PO QPM [facility] Stop: 08/15/17 16:59 Last Admin: 06/17/17 17:02 Dose: 20 mg Zolpidem Tartrate (Ambien) 5 mg PO HS PRN PRN Reason: Insomnia Stop: 08/14/17 21:16 General: Alert, Oriented x3, Cooperative HEENT: Atraumatic, PERRLA, EOMI Neck: Supple Cardiovascular: Normal S1, Normal S2, Other (Iregularly iregular.) Lungs: Clear to auscultation Abdomen: Bowel sounds, Soft Extremities: Other (Chronic venous stasis changes.) Neurological: Normal speech, Normal tone Psych/Mental Status: Other (labile mood.) - Procedures Procedures: Procedures Procedure Code Date GROUP PSYCHOTHERAPY 58551 06/30/15 GROUP PSYCHOTHERAPY GZHZZZZ 06/30/15 OTHER GROUP THERAPY 94.44 07/04/14 Assessment/Plan - Assessment Assessment: Chronic A fib. Hypertension. Chronic venous statsis on legs Dry skin. psych disorder. DJD Hyperlipedemia. fall risk Debility. CAD. - Plan Plan: Moisturizer cream. rate control Anti HTN meds. Fall precautions. Psych meds. Xarelto. Psych follow up general nursing care Monitor lab Continue current care. Discussed with mandy.
[2017-06-18 12:48] LABS: BUN - UREA NITROGEN 19 mg/dL (7-25); CALCIUM SERUM 9.5 mg/dL (8.6-10.3); CARBON DIOXIDE 24.2 mEq/L (21.0-31.0); CHLORIDE 102 mEq/L (98-107); CREATININE - SERUM 0.8 mg/dL (0.7-1.3); GFR AFRICAN-AMERICAN > 60.0 ml/min (>90); GFR NON AFRICAN-AMERICAN > 60.0 ml/min; GLUCOSE 99 mg/dL (70-105); POTASSIUM SERUM 4.2 mEq/L (3.5-5.1); SODIUM SERUM 132 mEq/L (136-145)
--- NOTE | 2017-06-18 23:54 | Progress Notes ---
DATE: 06/18/[address] James. Case was discussed with staff of the patient, reviewed records. This is a 66-year-old male with a history of depression. He was brought here because of his agitation and irritability. He came from [facility]. He was very depressed, anxious, irritable, feeling overwhelmed, distraught, can formulate a safe plan for self-care. The patient diagnosed depression, was continued with the Celexa 40 mg daily. So far continues to be irritable, depressed, continues to be unpredictable, impulsive, looking disheveled. No side effects with the medication, no sedation, no nausea. He is also on Seroquel 50 mg at bedtime. We will continue to work with the patient in group therapy, milieu therapy, adjust medication as needed. JOB# [id number]
--- NOTE | 2017-06-19 09:27 | General Progress Note ---
Subjective - Review of Systems Subjective: Patient is seen and examined. No chest pain ,sob,nausea,vomiting,headache. Objective - Results Result Diagrams: 06/15/17 13:45 06/18/17 12:07 Recent Labs: Laboratory Last Values WBC 7.4 Th/cmm (4.8-10.8) 06/15/17 13:45 RBC 4.35 Mil/cmm (3.80-5.80) 06/15/17 13:45 Hgb 13.2 gm/dL (12-16) 06/15/17 13:45 Hct 38.6 % (41.0-60) L 06/15/17 13:45 MCV 88.8 fl (80-99) 06/15/17 13:45 MCH 30.4 pg (27.0-31.0) 06/15/17 13:45 MCHC Differential 34.3 pg (28.0-36.0) 06/15/17 13:45 RDW 14.2 % (11.5-20.0) 06/15/17 13:45 Plt Count 264 Th/cmm (150-400) 06/15/17 13:45 MPV 8.2 fl 06/15/17 13:45 Neutrophils % 68.9 % (40.0-80.0) 06/15/17 13:45 Lymphocytes % 19.1 % (20.0-50.0) L 06/15/17 13:45 Monocytes % 8.0 % (2.0-10.0) 06/15/17 13:45 Eosinophils % 3.5 % (0.0-5.0) 06/15/17 13:45 Basophils % 0.5 % (0.0-2.0) 06/15/17 13:45 Sodium 132 mEq/L (136-145) L 06/18/17 12:07 Potassium 4.2 mEq/L (3.5-5.1) 06/18/17 12:07 Chloride 102 mEq/L (98-107) 06/18/17 12:07 Carbon Dioxide 24.2 mEq/L (21.0-31.0) 06/18/17 12:07 Anion Gap 10.0 (7.0-16.0) 06/18/17 12:07 BUN 19 mg/dL (7-25) 06/18/17 12:07 Creatinine 0.8 mg/dL (0.7-1.3) 06/18/17 12:07 Est GFR ( Amer) > 60.0 ml/min (>90) 06/18/17 12:07 Est GFR (Non-Af Amer) > 60.0 ml/min 06/18/17 12:07 BUN/Creatinine Ratio 23.8 06/18/17 12:07 Glucose 99 mg/dL (70-105) 06/18/17 12:07 Calcium 9.5 mg/dL (8.6-10.3) 06/18/17 12:07 Total Bilirubin 0.4 mg/dL (0.3-1.0) 06/15/17 13:45 AST 16 U/L (13-39) 06/15/17 13:45 ALT 11 U/L (7-52) 06/15/17 13:45 Alkaline Phosphatase 66 U/L (34-104) 06/15/17 13:45 Total Protein 7.3 gm/dL (6.0-8.3) 06/15/17 13:45 Albumin 4.3 gm/dL (4.2-5.5) 06/15/17 13:45 Globulin 3.0 gm/dL 06/15/17 13:45 Albumin/Globulin Ratio 1.4 (1.0-1.8) 06/15/17 13:45 TSH 1.94 uIU/ml (0.34-5.60) 06/15/17 13:45 Urine Source RANDOM 06/15/17 14:00 Urine Color YELLOW 06/15/17 14:00 Urine Clarity CLEAR (CLEAR) 06/15/17 14:00 Urine pH 7.0 (4.6 - 8.0) 06/15/17 14:00 Ur Specific [place] <= 1.005 (1.005-1.030) 06/15/17 14:00 Urine Protein NEGATIVE mg/dL (NEGATIVE) 06/15/17 14:00 Urine Glucose (UA) NEGATIVE mg/dL (NEGATIVE) 06/15/17 14:00 Urine Ketones NEGATIVE mg/dL (NEGATIVE) 06/15/17 14:00 Urine Blood NEGATIVE (NEGATIVE) 06/15/17 14:00 Urine Nitrate NEGATIVE (NEGATIVE) 06/15/17 14:00 Urine Bilirubin NEGATIVE (NEGATIVE) 06/15/17 14:00 Urine Urobilinogen 0.2 E.U./dL (0.2 - 1.0) 06/15/17 14:00 Ur Leukocyte Esterase NEGATIVE (NEGATIVE) 06/15/17 14:00 Urine RBC NONE SEEN /hpf (0-5) 06/15/17 14:00 Urine WBC NONE SEEN /hpf (0-5) 06/15/17 14:00 Ur Epithelial Cells NONE SEEN /lpf (FEW) 06/15/17 14:00 Urine Bacteria NONE SEEN /hpf (NONE SEEN) 06/15/17 14:00 - Physical Exam Vitals and I&O: Vital Signs Temp 98.7 F 06/19/17 06:38 Pulse 81 06/19/17 06:38 Resp 20 06/19/17 06:38 BP 157/81 06/19/17 06:38 Pulse Ox 99 06/19/17 06:38 Intake & Output 06/18/17 06/19/17 06/19/17 18:59 06:59 18:59 Intake Total 500 Balance 500 Intake: Oral 500 Other: # Voids 2 # Bowel Movements 0 Active Medications: Current Medications Acetaminophen (Tylenol) 650 mg PO Q4HR PRN PRN Reason: Mild Pain / Temp above 100 Stop: 08/14/17 21:16 Acetaminophen/Hydrocodone Bitart ([place] 5mg/325mg) 1 tab PO Q6H PRN PRN Reason: pain Stop: 08/15/17 15:59 Al Hydrox/Mg Hydrox/Simethicone (Maalox) 30 ml PO Q4HR PRN PRN Reason: GI DISTRESS Stop: 08/14/17 21:16 Amiodarone HCl (Cordarone) 200 mg PO DAILY [facility] Stop: 08/15/17 08:59 Last Admin: 06/18/17 09:04 Dose: 200 mg Atorvastatin Calcium (Lipitor) 40 mg PO HS [facility] Stop: 08/17/17 20:59 Last Admin: 06/18/17 20:57 Dose: 40 mg Citalopram Hydrobromide (Celexa) 40 mg PO DAILY [facility] PRN Reason: Protocol Stop: 08/15/17 08:59 Last Admin: 06/18/17 08:58 Dose: 40 mg Docusate Sodium (Colace) 100 mg PO BID [facility] Stop: 08/15/17 08:59 Last Admin: 06/18/17 16:38 Dose: 100 mg Hydrochlorothiazide (Hctz) 25 mg PO DAILY [facility] Stop: 08/15/17 08:59 Last Admin: 06/18/17 09:05 Dose: 25 mg Hydroxyzine HCl (Atarax) 10 mg PO Q6H PRN; Protocol PRN Reason: itching Stop: 08/15/17 16:16 Last Admin: 06/16/17 21:43 Dose: 10 mg Lorazepam (Ativan) 0.5 mg PO Q4HR PRN; Protocol PRN Reason: Anxiety/agitation Stop: 07/15/17 21:16 Last Admin: 06/16/17 09:30 Dose: 0.5 mg Magnesium Hydroxide (Milk Of Magnesia) 30 ml PO HS PRN PRN Reason: Constipation Metoprolol Tartrate (Lopressor) 25 mg PO BID [facility] Stop: 08/15/17 08:59 Last Admin: 06/18/17 16:39 Dose: Not Given Multivitamins/Vitamin C (Theragran) 1 tab PO DAILY [facility] Stop: 08/15/17 08:59 Last Admin: 06/18/17 08:58 Dose: 1 tab Mupirocin (Bactroban Oint) 1 appl TP BID [facility] Stop: 08/15/17 16:59 Last Admin: 06/18/17 16:39 Dose: 1 appl Quetiapine Fumarate (Seroquel) 50 mg PO HS [facility] Stop: 08/17/17 20:59 Last Admin: 06/18/17 20:58 Dose: 50 mg Rivaroxaban (Xarelto) 20 mg PO QPM [facility] Stop: 08/15/17 16:59 Last Admin: 06/18/17 16:38 Dose: 20 mg Zolpidem Tartrate (Ambien) 5 mg PO HS PRN PRN Reason: Insomnia Stop: 08/14/17 21:16 General: Alert, Oriented x3, Cooperative HEENT: Atraumatic, PERRLA, EOMI Neck: Supple Cardiovascular: Normal S1, Normal S2, Other (Iregularly iregular.) Lungs: Clear to auscultation Abdomen: Bowel sounds, Soft Extremities: Other (Chronic venous stasis changes.) Neurological: Normal speech, Normal tone Psych/Mental Status: Other (labile mood.) - Procedures Procedures: Procedures Procedure Code Date GROUP PSYCHOTHERAPY 12408 06/30/15 GROUP PSYCHOTHERAPY GZHZZZZ 06/30/15 OTHER GROUP THERAPY 94.44 07/04/14 Assessment/Plan - Assessment Assessment: Chronic A fib. Hypertension. Chronic venous statsis on legs Dry skin. psych disorder. DJD Hyperlipedemia. fall risk Debility. CAD. - Plan Plan: Moisturizer cream. rate control Anti HTN meds. Fall precautions. Psych meds. Xarelto. Psych follow up general nursing care Continue current care. Discussed with staff.
[2017-06-19] MEDS: Multivitamin Tab PO SCH (09:35)
--- NOTE | 2017-06-19 21:54 | Progress Notes ---
DATE: 06/19/2017 Case was discussed with staff of the patient, reviewed records. The patient continues to be depressed, overwhelmed, unpredictable, impulsive, needing redirection. Continues to have poor insight. Unable to make safe plan for self-care. He is on Celexa 40 mg a day and Seroquel 50 mg at bedtime with no side effects, no sedation, no nausea, no extrapyramidal symptoms. We will continue to work with the patient in group therapy, milieu therapy, adjust medication as needed. JOB# [id number]
[2017-06-20] MEDS: Multivitamin Tab PO SCH (08:47)
--- NOTE | 2017-06-20 21:05 | Progress Notes ---
DATE: 06/20/2017 SUBJECTIVE: Chart reviewed and the patient interviewed. Also, discussed the patient's condition with the staff and reviewed records and labs. The patient is still anxious and is still in an irritable mood at times. The patient also is still demanding for cigarettes and gets agitated when he does not get it. Also, personal hygiene is still poor. The patient also is still at times responding and it is because of his legal blindness. He also is still compliant with taking his medications with no side effects of medications. ASSESSMENT: The patient is still psychotic, but seems to be less. TREATMENT PLAN: Continue to monitor his behavior and his condition closely. Also, continue adjusting psychotropic medications and followup. JOB# [id number]
[2017-06-21] MEDS: Multivitamin Tab PO SCH (08:50)
--- NOTE | 2017-06-21 16:35 | Discharge Summary ---
DATE OF DISCHARGE: 06/21/2017 AGE: 66. SEX: Male. PHYSICIAN: Dr. James. FINAL DIAGNOSIS/PRIMARY DIAGNOSIS: Major depression, severe, recurrent, without psychotic features. REASON FOR HOSPITALIZATION: The patient was admitted to the hospital from [facility] because of increased depression and anxiety and also periods of irritability. HOSPITAL COURSE: The patient continued to be anxious and continued to be in a depressed mood. The patient also was anxious. The patient was given Celexa and the dose adjusted to 40 mg every day. The patient also was given Ativan on a p.r.n. basis and Seroquel in a dose of 50 mg at bedtime. Gradually, the patient's affect was brighter. The patient was not suicidal or homicidal. Also, was compliant with taking his medications with no side effects and the patient was discharged from the hospital. PHYSICAL EXAMINATION: Was basically within normal. Blood workup was also basically within normal. DISCHARGE ACTIVITY: No restrictions. EXPECTED OUTCOME AFTER DISCHARGE: Fair if the patient continued to take psychotropic medications and follow up with discharge plans. Also, the patient is a candidate for partial program in [facility]. JOB# [id number]
--- NOTE | 2017-06-21 21:38 | Progress Notes ---
DATE: 06/21/2017 SUBJECTIVE: The patient seen and examined. The patient is lying in the bed. The patient has no chest pain, shortness of breath, palpitation, dizziness, nausea or vomiting. PHYSICAL EXAMINATION: VITAL SIGNS: Temperature 98.6, pulse 74, respiratory rate 18, blood pressure 144/86. HEENT: No facial asymmetry. Poor dentition noted. NECK: Supple. No JVD. HEART: Irregularly irregular. CHEST: Lung equal in expansion. No wheezing. No crackles. ABDOMEN: Soft. No guarding, rigidity. Bowel sounds present. No palpable mass. EXTREMITIES: Chronic venous stasis changes noted. NEUROLOGIC: Alert, awake, follows commands. CLINICAL IMPRESSION: 1. Psychiatric disorder exacerbation. 2. Chronic atrial fibrillation. 3. Chronic venous stasis changes in both lower extremities. 4. Hypertension. 5. Coronary artery disease. 6. Cardiac arrhythmia. 7. Degenerative joint disease. 8. Dry skin. 9. Fall risk. PLAN: 1. Psychotic evaluation and management deferred to psychiatrist. 2. Local care for the chronic venous stasis changes. 3. Antihypertensive medicine. 4. Xarelto. 5. Symptoms management. 6. Fall precautions. 7. General nursing care. 8. We will continue to follow this patient during the stay in the hospital. [facility]# [id number]
== END 2017-06-21 13:25 | DRG 885 ==
LOC: ER 13:06 → GERO2 19:59
PROVIDERS: ADMIT Psychiatry & Neurology Psychiatry; ATTEND Psychiatry & Neurology Psychiatry
DX: F33.2 Major depressive disorder, recurrent severe without psychotic features (principal); I48.2 Chronic atrial fibrillation; F29 Unspecified psychosis not due to a substance or known physiological condition; E66.9 Obesity, unspecified; I10 Essential (primary) hypertension; I87.8 Other specified disorders of veins; I25.10 Atherosclerotic heart disease of native coronary artery without angina pectoris; M19.90 Unspecified osteoarthritis, unspecified site; I73.9 Peripheral vascular disease, unspecified; Z82.49 Family history of ischemic heart disease and other diseases of the circulatory system; Z68.30 Body mass index [BMI] 30.0-30.9, adult; Z91.81 History of falling
CPT/HCPCS: 36415-UA; 71045-TC; 80048-TC; 80053-TC; 81001-TC; 84443-TC; 85025-TC; 90899; 93005; G0410; J7030; Z7610